=== PATIENT | female | born 1955 | race Caucasian/White ===

== ENCOUNTER 2023-02-13 08:29 | Outpatient (CLI) | payer OTHER | END 2023-02-13 08:34 | disposition home or self-care (01) | LOC: TOM 08:29 | DX: J45.909 Unspecified asthma, uncomplicated (principal) | CPT/HCPCS: 71260; Q9965 ==

== ENCOUNTER 2023-06-23 07:12 | Outpatient (CLI) | payer OTHER | END 2023-06-23 07:13 | disposition home or self-care (01) | LOC: NUCLEAR 07:12 → EDBD 07:12 → NUCLEAR 07:13 | PROVIDERS: ATTEND Internal Medicine Cardiovascular Disease | DX: I47.20 Ventricular tachycardia, unspecified (principal); R07.89 Other chest pain | CPT/HCPCS: 78452; 93017; A9500 ==

== ENCOUNTER 2024-03-28 01:23 | Emergency (ER) | payer OTHER ==
[~2024-03-28] VITALS: Ht 154.9 cm; Wt 63.5 kg
[2024-03-28] MEDS ORDERED: ALLERGY RELIE15.8 ML (01:32)
[2024-03-28] MEDS ORDERED: BENZONATATE150 MG (01:33)
[2024-03-28 02:35] LABS: ABG PH 7.531 (7.35-7.45); ABG PO2 105.4 mmHg (80-100); ABG pCO2 29.6 mmHg (35-45); BASE EXCESS 2.6 mmol/l; BICARBONATE 24.3 mmol/l (23-25); SaO2 98.7 %; Tco2 25.2 mmol/l; allen test SATISFACTORY; o2 21 %; puncture site BRADIAL RIGHT
[2024-03-28] MEDS ORDERED: BUDESONIDE0.5 MG/2 M IH (02:50)
[2024-03-28] MEDS ORDERED: LEVALBUTER0.63 MG/3 IH (02:50)
[2024-03-28] MEDS ORDERED: PAXLOVID 150-11 EAC1 PO (02:50)
[2024-03-28] MEDS ORDERED: BENZONATATE200 M1 PO (03:35)
== END 2024-03-28 03:37 ==
LOC: ER 01:24
PROVIDERS: General Practice
DX: U07.1 COVID-19 (principal); Z88.0 Allergy status to penicillin